=== PATIENT | female | born 1980 | race Caucasian/White ===

== ENCOUNTER 2021-02-01 10:54 | Emergency (ER) | payer BC, SELFPAY ==
[2021-02-01 11:32] VITALS: BP 120/77; PULSE 81; RESP 18; TEMP 36.8; O2SAT 100
--- NOTE | 2021-02-01 13:03 | ED.URI ---
HPI - URI/Sore Throat General Chief Complaint: Upper Respiratory Infection Stated Complaint: cough,headache,body aches Source: patient Mode of arrival: ambulatory Limitations: no limitations History of Present Illness HPI Narrative: Patient is a 40-year-old female who presents with cough, body aches, sore throat and intermittent headache x5 days. She reports taking hxus-rdb-sorgyek medications for symptomatic treatment. She reports taking rapid Covid test on Tuesday at work which was negative. She denies significant medical history. She reports she is not vaccinated for Covid at this time. Related Data Allergies Allergy/AdvReac Type Severity Reaction Status Date / Time No Known Allergies Allergy Unverified 05/02/17 12:35 Review of Systems Review of Systems: CONSTITUTIONAL: Denies fever, chills, or sweats. EYES: Denies visual changes, redness, or discharge. ENT: Reports congestion and sore throat CARDIOVASCULAR: Denies chest pain, palpitations, or edema. RESPIRATORY: Reports cough, denies dyspnea. GASTROINTESTINAL: Denies abdominal pain, nausea, vomiting, or diarrhea. GENITOURINARY: Denies dysuria or hematuria. SKIN: Denies rash or itching. MUSCULOSKELETAL: Denies back pain, joint pain, or myalgia. NEUROLOGIC: Reports headache PSYCHIATRIC: Denies anxiety or depression. [facility] Family History Family History (Updated 12/13/13 @ 07:13 by DOCTOR UNKNOWN) Father Hypertension Social History Social History Alcohol intake: current Exam Narrative: GENERAL: Well-appearing, well-nourished, and in no acute distress. HEAD: Normocephalic, atraumatic. EYES: EOMI. No redness or drainage. Conjunctiva are normal. ENT: Mucous membranes pink and moist. Nares clear. No rhinorrhea. Throat normal. Uvula midline. NECK: AROM. Supple. No lymphadenopathy. CHEST: No respiratory distress. Clear to auscultation. HEART: Regular rate and rhythm. EXTREMITIES: Normal range of motion. No edema. SKIN: Warm, dry, no rash. NEURO: No focal deficits. Alert and oriented x3. Gait steady. PSYCH: Normal affect. No signs of depression or anxiety. Course Vital Signs Vital signs: Vital Signs Temperature 36.8 C 02/01/21 11:32 Pulse Rate 81 02/01/21 11:32 Respiratory Rate 18 02/01/21 11:32 Blood Pressure 120/77 02/01/21 11:32 Pulse Oximetry 100 02/01/21 11:32 Temperature 36.8 C 02/01/21 11:32 Pulse Rate 81 02/01/21 11:32 Respiratory Rate 18 02/01/21 11:32 Blood Pressure 120/77 02/01/21 11:32 Pulse Oximetry 100 02/01/21 11:32 Reviewed MDM - URI/Sore Throat MDM Narrative Medical decision making narrative: Patient refuses strep and Covid testing at this time. Discussed with patient that we will be given Tessalon for cough as well as prednisone. Patient agrees with plan of care. Patient is aware of red flags and when to seek further evaluation. Patient is stable for discharge to home. Patient to follow-up with PCP as discussed. Critical Care Time Critical Care Time Critical Care Time: No Discharge Plan Discharge Clinical Impression: Upper respiratory infection Qualifiers: URI type: unspecified URI Qualified Code(s): J06.9 - Acute upper respiratory infection, unspecified Patient Disposition: Home, Self-Care Condition: Stable Instructions: Antibiotic Form, Upper Respiratory Infection (ED) Additional Instructions: Take medication as directed. You may also want to use an [id number]-bxhoywo allergy medication. You may take Tylenol or Motrin for body aches or fever. Follow-up with your PCP in 3 to 5 days if symptoms persist. Prescriptions: New prednisone 20 mg tablet 40 mg PO DAILY 5 Days Qty: 10 RF: 0 benzonatate [Tessalon Perles] 100 mg capsule 100 mg PO TID PRN (Reason: cough) Qty: 10 RF: 0 Follow-up/Referrals: Taco,Jonathon Pizarro MD [Primary Care Provider] - Time of Disposition: 12:24
== END 2021-02-01 12:26 | disposition home or self-care (01) ==
PROVIDERS: Emergency Provider Nurse Practitioner; PCP Internal Medicine
DX: J06.9 Acute upper respiratory infection, unspecified (principal)
CPT/HCPCS: 99213; G0463

== ENCOUNTER 2021-04-14 07:39 | Outpatient (RCR) | payer BC, SELFPAY ==
[2021-04-14 08:14] VITALS: BP 106/71; PULSE 89; RESP 16; TEMP 36.1; O2SAT 100
[2021-04-14] MEDS: diphenhydrAMINE HCl CAP 25 MG CAPSULE PO (08:17)
[2021-04-14] MEDS: ACETAMINOPHEN 325 MG TABLET 650 MG PO (08:17)
[2021-04-14] MEDS: FAMOTIDINE 20 MG TABLET PO (08:18)
[2021-04-14 09:35] VITALS: BP 105/66
== END 2021-04-14 17:00 ==
LOC: AMCINF 07:39
PROVIDERS: PCP Physician Assistant Medical; Visit Provider Internal Medicine Hematology & Oncology
DX: U07.1 COVID-19 (principal)
CPT/HCPCS: A9270; M0245; Q0245

== ENCOUNTER → 2022-10-07 16:09 | Outpatient (CLI) | payer BC, SELFPAY ==
--- NOTE | ~2022-10-07 | MM_ITS ---
EXAMINATION: MM screening saloni BI w deondre HISTORY: Screening mammogram. Baseline examination. TECHNIQUE: Craniocaudal and mediolateral oblique 3-D tomosynthesis images were obtained and synthetic 2-D images were generated. CAD analysis was submitted and interpreted. COMPARISON: No prior mammogram is available for comparison at this institution. BREAST PARENCHYMAL COMPOSITION: There are scattered areas of fibroglandular density. FINDINGS: There is no evidence of suspicious mass, calcification, or architectural distortion to sugg est malignancy in either breast. There has been no suspicious interval change. IMPRESSION: 1. No mammographic evidence of malignancy. 2. Recommend routine screening mammography in one year. BI-RADS Category 1: Negative Reviewed, dictated and finalized at location A.
== END ==
PROVIDERS: PCP Obstetrics & Gynecology; Visit Provider Obstetrics & Gynecology
DX: Z12.31 Encounter for screening mammogram for malignant neoplasm of breast (principal)
CPT/HCPCS: 77063; 77067